=== PATIENT | female | born 1955 | race African-American/Black ===

== ENCOUNTER 2018-12-31 19:58 | Emergency (ER) | payer MEDICARE, MEDICAID ==
[~2018-12-31] VITALS: Ht 175.3 cm; Wt 111.0 kg
[2018-12-31] MEDS ORDERED: NAPR-1193 PO (20:37)
[2018-12-31] MEDS ORDERED: QUET300T2 PO (20:37)
[2018-12-31] MEDS ORDERED: GABA-533 PO (20:37)
[2018-12-31] MEDS ORDERED: QUET200T PO (20:37)
[2018-12-31] MEDS ORDERED: BENZONATATE 100 MG CAPSULE PO ONE (23:15)
[2018-12-31] MEDS ORDERED: OxyCODONE HCL/ACETAMINOPHEN 5-325 MG TABLET PO ONE (23:15)
[2019-01-01] MEDS ORDERED: HYDROmorphone 2 MG/ML SYRINGE IM ONE (00:15)
[2019-01-01 00:24] VITALS: BP 125/82
== END 2019-01-01 00:32 | disposition home or self-care (01) ==
LOC: EMS 19:59 → EDBD 19:59 → EMS 01-01 00:32
DX: M50.90 Cervical disc disorder, unspecified, unspecified cervical region (principal); I10 Essential (primary) hypertension; K21.9 Gastro-esophageal reflux disease without esophagitis; F32.9 Major depressive disorder, single episode, unspecified; J45.909 Unspecified asthma, uncomplicated; F17.210 Nicotine dependence, cigarettes, uncomplicated
CPT/HCPCS: 96372; 99283; J1170